=== PATIENT | male | born 1955 | race Caucasian/White ===

== ENCOUNTER 2017-12-13 06:38 | Outpatient (CLI) | payer BC ==
[~2017-12-13] VITALS: Ht 175.3 cm; Wt 122.7 kg
--- NOTE | ~2017-12-13 | HEMODYNAMI ---
PATIENT:CARLEY MARTINEZ MEDICAL RECORD: [id number] : 53 LOCATION:[facility] ADMISSION DATE: 12/13/17 Generatedon:12/13/201710:51 Patient name: CARLEY MARTINEZ Patient #: [id number] SSN: DO B: 1955 Date of study: 12/13/2017 Page: Of Hemodynamic Procedure Report Patient Data Patient Demographics Procedure consent was obtained First Name: CARLEY Gender: Male Last Name: JUAN : 1955 Patient #: [id number] Age: 62 year(s) Race: Unknown Additional ID: [id number] Contact details [address]: [address] [place] [address] State: [place] City: [place] Zip code: [address] Past Medical History Allergies: No known allergies Admission Admission Data Admission Date: 12/13/2017 Admission Time: 6:38 Admit Source: Other Lab Results Lab Result Date: 12/13/2017 Lab Result Time: 7:25 Biochemistry Name Units Result Min Max BUN mg/dl 16 --(---*)-- 7 18 Creatinine mg/dl 1.1 --(--*-)-- 0.6 1.3 CBC Name Units Result Min Max Hematocrit % 44.9 --(*---)-- 42 54 Hemoglobin g/dl 14.8 --(-*--)-- 13.5 17.5 Procedure Procedure Types Cath Procedure Diagnostic Procedure [facility] w/Coronaries Sedation Charges Moderate Sedation up to 15 minutes Procedure Description Procedure Date Procedure Date: 12/13/2017 Procedure Start Time: 10:30 Procedure End Time: 10:50 Procedure Staff Name Function Garcia Farah MD Performing Physician Giovanny Bhagat RT Monitor Afshin Watson RN Nurse Leatha Pitts RT Scrub Procedure Data Cath Procedure Fluoroscopy Diagnostic fluoroscopy Total fluoroscopy Time: 4.1 time: 4.1 min min Diagnostic fluoroscopy Total fluoroscopy dose: 984 dose: 984 mGy mGy Contrast Material Contrast Material Type Amount (ml) Isovue 300 75 Entry Location Entry Primary Successful Side Size Upsize Upsize Entry Closure Richard ccessful Closure Location (Fr) 1 (Fr) 2 (Fr) Remarks Device Remarks Radial Right 6 Fr Mechanical artery Short Compression Estimated blood loss: 5 ml Diagnostic catheters Device Type Used For End Catheter Placement DIAGNOSTIC Brandan 110cm Procedure 5Fr catheter ([id number]) DIAGNOSTIC Edna 110cm 5 Procedure Fr catheter ([id number]) Procedure Complications No complications Procedure Medications Medication Administration Route Dosage 0.9% NaCl I.V. 100 ml/hr Oxygen etCO2 Nasal cannula 2 l/min Heparin Flush Bag added to field 2 bags (1000units/500ml NS) Lidocaine 2% added to field 20 Radial Cocktail added to field 1 syringe (Verapomil 2mg/Nitro 400mcg/Heparin 1500units) Versed I.V. 2 mg Fentanyl I.V. 100 mcg Radial Cocktail I.A. 1 syringe (Verapomil 2mg/Nitro 400mcg/Heparin 1500units) Versed I.V. 1 mg Hemodynamics Rest HGB: 14.8 (g/dl) Heart Rate: 52 (bpm) Pressure Samples Time Site Value (mmHg) Purpose Heart Use Rate(bpm) 10:34 LV 148/5,24 Snapshot 58 10:34 AO 95/58(74) Pullback 56 10:34 LV 139/3,19 Pullback 56 Gradients Valve Time Site 1 Site 2 Mean SEP/DFP Peak To Heart Use (mmHg) (sec/min) Peak Rate (mmHg) (bpm) Aortic 10:34 LV AO 25 12 44 56 139/3,19 95/58(74) Calculations Valve P-P Mean Valve Index Valve Source Name Gradient Area Flow (cm2) Aortic 44 25 44 25 Snapshots Pre Cath Intra NCS Post Cath Vital Signs Time Heart Resp SPO2 etCO2 NIBP Rhythm Pain Sedation Rate (ipm) (%) (mmHg) (mmHg) Status Level (bpm) 10:24:24 51 19 95 27 106/69(98) NSR 0 (11) 10(A) , No pain 10:29:05 51 14 95 39.8 113/68(96) NSR 0 (11) 10(A) , No pain 10:33:41 61 9 92 15.7 99/62(80) NSR 0 (11) 10(A) , No pain 10:38:20 55 9 92 38.3 110/58(76) NSR 0 (11) 10(A) , No pain 10:43:03 54 10 96 36.8 108/57(74) NSR 0 (11) 10(A) , No pain 10:47:43 49 15 98 37.6 118/65(96) NSR 0 (11) 10(A) , No pain Medications Time Medication Route Dose Verified Delivered Reason Notes Effectiveness by by 10:18:12 0.9% NaCl I.V. 100 Afshin Afshin Per ml/hr Walter Watson physician RN RN 10:18:22 Oxygen etCO2 2 l/min Afshin Afshin Per Nasal Walter Watson physician cannula RN RN 10:18:59 Heparin Flush added 2 bags Afshin Afshin used for Bag to Walter Watson procedure (1000units/500ml field AKANKSHA RN NS) 10:19:11 Lidocaine 2% added 20ml Afshin Afshin for local to vial Walter Watson anesthetic field AKANKSHA VALE 10:19:23 Radial Cocktail added 1 Afshin Afshin used for (Verapomil to syringe Walter Watson procedure 2mg/Nitro field VALE RN 400mcg/Heparin 1500units) 10:25:25 Versed I.V. 2 mg Afshin Afshin for sedation Walter Watson RN, RN 10:25:34 Fentanyl I.V. 100 mcg Afshin Afshin for sedation Walter Watson RN, RN 10:31:15 Radial Cocktail I.A. 1 Afshin Garcia for (Verapomil syringe Walter Farah MD vasodilation 2mg/Nitro RN 400mcg/Heparin 1500units) 10:32:47 Versed I.V. 1 mg Afshin Afshin for sedation Walter Watson RN, RN Procedure Log Time Note 10:06:02 Informed consent obtained and on chart 10:06:06 Admit Source: Other 10:06:29 Diagnostic Cath status Elective 10:06:31 Afshin Watson RN sent for patient. Start room use. ::31 Time tracking: Regular hours (M-F 7:00 - 5:00) 10:06:35 Plan of Care:Hemodynamics will remain stable., Cardiac rhythm will remain stable., Comfort level will be maintained., Respiratory function will remain adequate., Patient/ family verbilizes understanding of procedure., Procedure tolerated without complication., Recovers from procedure without complications.. 10:06:57 H&P Date Dictated: 12/04/2017 Within 30 days and on chart., H&P Addendum completed by physician on day of procedure. (MUST COMPLETE FOR ALL OUTPATIENTS). 10:09:04 Lab Result : Hemoglobin 14.8 g/dl 10:09:04 Lab Result : Hematocrit 44.9 % 10:09:04 Lab Result : BUN 16 mg/dl 10:: Lab Result : Creatinine 1.1 mg/dl 10:09:09 Patient received from Pre/Post Procedure Room to CCL 1 Alert and oriented. Tansferred to table in Supine position. 10:09:10 Warm blankets applied, and dangelo hugger turned on for patient comfort. 10:09:11 Correct patient and procedure confirmed by team. 10:09:11 ECG and BP/O2 sat monitors applied to patient. 10::13 Pre-procedure instructions explained to patient. 10::13 Pre-op teaching completed and patient verbalized understanding. 10:09:14 Family in waiting room. 10:09:15 Patient NPO since Midnight. 10:09:20 Patient allergic to No known allergies 10:15:24 Is the patient allergic to Iodine/contrast media? No. 10:15:25 Was the patient premedicated? No 10:15:26 Is patient on blood thinner?No 10:15:28 Patient diabetic? No. 10:15:31 Previous problem with sedation/anesthesia? No ? 10:15:33 Snore? Yes 10:15:34 Sleep apnea? No 10:15:35 Deviated septum? No 10:15:36 Opens mouth fully? Yes 10:15:37 Sticks out tongue? Yes 10:18:12 0.9% NaCl 100 ml/hr I.V. was administered by Afshin Watson RN; Per physician; 10:18:22 Oxygen 2 l/min etCO2 Nasal cannula was administered by Afshin Watson RN; Per physician; 10:18:59 Heparin Flush Bag (1000units/500ml NS) 2 bags added to field was administered by Afshin Watson RN; used for procedure; 10:19:11 Lidocaine 2% 20ml vial added to field was administered by Afshin Watson RN; for local anesthetic; 10:19:23 Radial Cocktail (Verapomil 2mg/Nitro 400mcg/Heparin 1500units) 1 syringe added to field was administered by Afshin Watson RN; used for procedure; 10:23:22 Airway obstruction? No ? 10:23:27 Dentures? Yes in tight 10:23:30 Modified Keaton's test Ulnar < 7 seconds 10:23:30 Vital chart was started 10:23:31 Patient pain scale 0/10 ?. 10:23:35 IV patent on arrival in left forearm with 0.9% NaCl at [facility]. 10:23:37 Lab results completed and on chart. 10:23:40 Right Radial & Right Groin area was prepped with chlora-prep and draped in sterile fashion 10:23:41 Alarms reviewed by R. N. 10:23:41 Sharps counted by scrub and verified by R.N. 10:23:44 Use device set Radial Dx or PCI 10:23:45 ACIST Syringe (40563) opened to sterile field. 10:23:45 Medline Cath Pack ([id number]) opened to sterile field. 10:23:46 Bag Decanter (2002S) opened to sterile field. 10:23:46 ACIST Manifold (93149) opened to sterile field. 10:23:47 ACIST Hand Control (91203) opened to sterile field. 10:23:47 Tegaderm 4 x 4 (1626W) opened to sterile field. 10:23:48 MBrace Wrist Support ([id number]) opened to sterile field. 10:23:50 DIAGNOSTIC WIRE .035 260cm J wire (902023) opened to sterile field. 10:23:51 SHEATH 6Fr Prelude Radial ([id number]) opened to sterile field. 10:23:58 Baseline sample Acquired. 10:24:01 Rhythm: sinus rhythm 10:24:03 Full Disclosure recording started 10:25:02 Physician arrived 10:25:02 --------ALL STOP TIME OUT------ 10:25:02 Final Timeout: patient, procedure, and site verified with staff and physician. All members of the team are in agreement. 10:25:04 Right Radial & Right Groin site verified by team. 10:25:06 Physical assessment completed. ASA score P 2 - A patient with mild systemic disease as per Garcia Farah MD. 10:25:08 Sedation plan: IV Moderate Sedation Medication:Versed, Fentanyl 10:25:25 Versed 2 mg I.V. was administered by Afshin Watson RN; for sedation; 10::34 Fentanyl 100 mcg I.V. was administered by Afshin Watson RN; for sedation; 10:30:18 Procedure started. 10:30:22 Local anesthetic to right radial artery with Lidocaine 2% by Garcia Farah MD.INITIAL ACCESS ONLY 10:30:39 A 6 Fr Short sheath was inserted into the Right Radial artery 10:30:41 Zero performed for pressure channel P1 10:31:15 Radial Cocktail (Verapomil 2mg/Nitro 400mcg/Heparin 1500units) 1 syringe I.A. was administered by Garcia Farah MD; for vasodilation; 10:31:37 A DIAGNOSTIC Brandan 110cm 5Fr catheter ([id number]) was advanced over the wire and used for Procedure. 10:32:47 Versed 1 mg I.V. was administered by Afshin Watson RN; for sedation; 10:34:26 LV gram done using LONG 10:34:28 Injector settings: Ml/sec: 5, Volume: 15, 10:34:33 EF : 60 % 10:34:44 LV hemodynamics recorded. 10:35:08 RCA angiography performed. 10:36:42 Catheter exchanged over wire. 10:37:37 A DIAGNOSTIC Edna 110cm 5 Fr catheter ([id number]) was advanced over the wire and used for Procedure. 10:38:16 LCA angiography performed. 10:45:42 TR BAND Large ([id number]) opened to sterile field. 10:46:55 Catheter removed. 10:47:01 Sheath removed intact; hemostasis achieved with Mechanical Compression to the Right Radial artery. 10:47:04 Procedure ended.(Physican Out) 10:47:10 Fluoroscopy time 04.10 minutes. 10:47:14 Fluoroscopy dose: 984 mGy 10:47:14 Flurop Dose total: 984 10:47:16 Contrast amount:Isovue 300 75ml. 10:47:18 Sharps counted by scrub and verified by R.N. 10:47:19 TR band inflated with 12cc of air. 10:47:50 Insertion/operative site no bleeding no hematoma. 10:47:56 Post right radial artery:stable, soft, clean and dry 10:47:58 Post Procedure Pulses reassessed and unchanged 10:48:00 Post-procedure physical assessment completed. ASA score P 2 - A patient with mild systemic disease as per Garcia Farah MD. 10:48:02 Post procedure rhythm: unchanged. 10:48:07 Estimated blood loss: 5 ml 10:48:08 Post procedure instruction explained to patient.Patient verbalizes understanding. 10:48:09 Patient needs reinforcement of post procedure teaching. 10:50:02 Procedure type changed to Cath procedure, Diagnostic procedure, LHC, LHC w/Coronaries, Sedation Charges, Moderate Sedation up to 15 minutes 10:50:24 Procedure and supply charges have been captured, reviewed, submitted and are correct. 10:50:26 Procedure Complication : No complications 10:50:28 Vital chart was stopped 10:50:28 See physician's report for complete and final results. 10:50:30 Report given to Pre/Post Procedure Room. 10:50:32 Patient transfered to Pre/Post Procedure Room with Stretcher. 10:50:34 Procedure ended. 10:50:34 Full Disclosure recording stopped 10:50:37 End room use (Document Last) Device Usage Item Name Manufacture Quantity Catalog Number Hospital Part Current M inimal Lot# / Charge Number Stock Stock Serial# Code ACIST Syringe Acist 1 82551 [id number] 466591 [id number] 2 0 (33118) [employer] Medline Cath Cardinal 1 [id number] 473008 04958 320220 5 [facility] ([id number]) Bag Decanter Microtek 1 2001S 746760 03612 741424 5 (2001S) Medical Inc. ACIST Manifold Acist 1 81440 690251 180690 678235 5 (13196) [employer] Inc ACIST Hand Acist 1 51492 513203 002662 372286 5 Control (76580) [employer] Inc Tegaderm 4 x 4 3M 1 1626W 930625 615939 797662 5 (1626W) MBrace Wrist Advanced 1 140-0250-00 633531 62424 085109 5 Support Vascular ([id number]) Dynamics DIAGNOSTIC WIRE St Robert 1 544157 555383 646910 759341 3 0 .035 260cm J wire (003134) SHEATH 6Fr Merit 1 [id number] 370954 048729 606255 5 Prelude Radial Medical ([id number]) DIAGNOSTIC Terumo 1 40-6563 679216 465724 452944 5 Brandan 110cm 5Fr catheter (698652) DIAGNOSTIC Terumo 1 40-5323 089968 802521 258580 5 Edna 110cm 5 Fr catheter (144433) TR BAND Large Terumo 1 [id number] 277998 095599 965272 4 0 ([id number]) Signature Audit [place] Stage Time Signature Unsigned Intra-Procedure 12/13/2017 Giovanny Bhagat 10:51:22 AM RT(R) Signatures Monitor : Giovanny Bhagat RT Signature : Date : Time : [address] [address]
[2017-12-13 07:28] VITALS: BP 131/77; Ht 175.3 cm; Wt 122.7 kg
[2017-12-13 07:30] LABS: BASOPHILS 0.4 % (0-2); EOSINOPHILS 2.6 % (0-7); HEMATOCRIT 44.9 % (42.0-54.0); HEMOGLOBIN 14.8 g/dL (13.5-17.5); LYMPHOCYTES 25.2 % (15-50); MCH 29.4 pg (26.0-34.0); MCV 89.1 fL (80.0-100.0); MEAN PLATELET VOLUME 9.8 fL (7.4-10.4); MONOCYTES 8.7 % (2-11); NEUTROPHILS 63.1 % (40-80); PLATELET COUNT 150 10x3/uL (130-400); RBC 5.04 10x6/uL (4.20-6.10); RDW 13.4 % (11.5-14.5); WBC 5.3 10x3/uL (4.8-10.8)
[2017-12-13] MEDS ORDERED: CRESTOR40 MG PO (07:31)
[2017-12-13] MEDS ORDERED: TRIBENZOR 20-51 EACH PO (07:31)
[2017-12-13] MEDS ORDERED: BAYER CHEWABLE81 MG PO (07:31)
[2017-12-13] MEDS ORDERED: VITAMIN D250000 UNIT PO (07:32)
[2017-12-13 07:56] LABS: CALCIUM 9.3 mg/dL (8.5-10.1); CARBON DIOXIDE 29.4 mmol/L (21.0-32.0); CREATININE - SERUM 1.1 mg/dL (0.6-1.3); POTASSIUM - SERUM 4.4 mmol/L (3.5-5.1)
== END 2017-12-13 13:15 | disposition home or self-care (01) ==
LOC: D.CATH 06:38
PROVIDERS: Internal Medicine Cardiovascular Disease
DX: R94.39 Abnormal result of other cardiovascular function study (principal); I10 Essential (primary) hypertension; R06.09 Other forms of dyspnea; Z01.812 Encounter for preprocedural laboratory examination

== ENCOUNTER 2017-12-28 07:30 | Inpatient (IN) | payer BC ==
[~2017-12-28] VITALS: Ht 175.3 cm; Wt 108.1 kg
--- NOTE | ~2017-12-28 | OP ---
PATIENT NAME: CARLEY MARTINEZ MEDICAL RECORD: [id number] :53 LOCATION:[facility] ADMISSION DATE:01/03/18 SURGEON: ISSAC DIXON MD DATE OF OPERATION: 01/03/2018 SURGEON: Issac Dixon MD MALTER OPERATOR: Levy Best MD and BASSAM Gutiérrez OPERATION PERFORMED: 1. Coronary artery bypass graft times 4 (left internal mammary to LAD, reverse saphenous vein graft from aorta to ramus intermedius, aorta to obtuse marginal, aorta to right coronary artery). 2. Endoscopic saphenous vein harvest. PREOPERATIVE DIAGNOSES: Coronary artery disease with unstable angina including new onset crescendo angina. POSTOPERATIVE DIAGNOSES: Coronary artery disease with unstable angina including new onset crescendo angina. ANESTHESIA: General endotracheal anesthesia. ESTIMATED BLOOD LOSS: Total cardiopulmonary bypass with Cell Saver retransfusion. COMPLICATIONS: None. SPECIMENS: None. CONDITION: Stable. DISPOSITION: CV ICU. OPERATIVE FINDINGS: 1. Smallish greater saphenous vein at the knee and good quality partially dual system in the thigh required open harvest due to a large posterior branch after aborting the endoscopic vein harvest of the right thigh. The smaller segment was a good match for the obtuse marginal graft and the other vein segments were good matches for the obtuse marginal and right coronary artery grafts. 2. Good quality internal mammary artery. 3. Normal appearing heart with good contractility and normal APOLLO. 4. LAD was a 2.0-mm vessel that was mostly intraepicardial by about 2 mm, as suspected from the preoperative angiogram reviewed by Dr. Best. 5. The ramus intermedius was a smallish 1.5 mm vessel just behind a large segment of epicardial fat and anastomosed low near the left atrial appendage. 6. The large obtuse marginal was a 2.5 mm vessel. 7. Right coronary artery, 2.5 mm vessel. 8. Mild bradycardia requiring atrial pacing after separation from cardiopulmonary bypass. OPERATIVE INDICATION: Crescendo angina, multivessel coronary artery disease including left main coronary stenosis. OPERATIVE SUMMARY IN DETAIL: The patient was brought to the operative suite. OPERATIVE REPORT [id number] CARLEY MARTINEZ General anesthesia was obtained. The patient was prepped and draped. Greater saphenous vein harvested from the right leg, first with endoscopic technique, but then with open technique. Side branches clipped, vessel removed, side branches tied, leg later closed in 2 layers and an elastic wrap applied. Mediastinum incision was made. Subcutaneous tissue divided with electrocautery. Sternum was divided with a saw. The left hemisternum was elevated. The left pleural cavity was entered. Left internal mammary was taken down as a pedicle graft. Sternal retractor was placed. Pericardium was opened. Heparin was given. The aorta and right atrium were cannulated. Internal mammary was clipped distally and made ready for anastomosis. The patient was placed on cardiopulmonary bypass after activated clotting time was appropriately elevated. Sites for distal anastomoses were selected. The patient's temperature was allowed to drift downward. Crossclamp was placed. Antegrade cardioplegia needle was inserted. The patient was given antegrade cardioplegic and this repeated at 15 minute intervals including down the completed vein graft. Distal anastomoses were performed in standard technique, proximal anastomosis in single cross-clamp technique. Aortic root de-aired. Proximal anastomosis tied down. Flow restored in the vein grafts. Proximal and distal anastomotic sites inspected for bleeding with single proximal suture and single distal suture in the right. The patient was in spontaneous rhythm. Left chest was evacuated. The internal mammary was placed behind the epicardial fat. Atrial pacing wires were placed. The patient was atrially paced and weaned from cardiopulmonary bypass and was stable. The patient was decannulated. Protamine was given. Pledgeted suture was placed in the aortic cannulation site. Hemostasis was ensured. Drains were placed in the mediastinal and left pleural cavity. Pericardial fat was approximated over the aorta. Internal mammary harvest site was inspected and it was free of bleeding. Sternum was closed with wires. Fascia was closed, subcutaneous tissue closed, and skin was closed. Dermabond was placed. The needle and sponge counts reported correct and the patient was taken to ICU in stable condition. TRANSINT:[id number] Voice Confirmation ID: [id number] DOCUMENT ID: [id number] ISSAC DIXON MD at 0720 CC: [id number] DICTATION DATE: 01/03/18 1551 CONSUMER INSIGHT ANALYST: 01/03/18 1641 ADM IN [facility] [address] [place] [address]
--- NOTE | ~2017-12-28 | HP ---
PATIENT: CARLEY MARTINEZ MEDICAL RECORD: [id number] ACCOUNT: [id number] LOCATION:[facility]- : 53 ADMISSION DATE: 01/03/18 HISTORY AND PHYSICAL EXAMINATION CARLEY Drew (62yo, M) ID# [id number]. Date/Time12/21/2017 11:55AHIHB38 1955Service Dept.NP_[place] [facility] ClinicProviderJONG DIXON MDInsuranceMed Primary: [place] Insurance # : [id number] Policy/Group # : [id number] Referring Provider Name : LAURE COBB Employer Name : UNKNOWN Prescription: CMX - Member is eligible. Prescription: [facility] MEDICAID ADMINISTRATION - Member is eligible. Chief Complaint Coronary artery disease referral from mandi Farah for CABG Patient's Care Team Referring Provider (): LAURE COBB: [address] [address], , Fax [phone] Roller Helper: FILIPE FARAH MD: [address] [place] [phone], , Patient's Pharmacies [facility] ([facility]): [address] [place] [address], , Vitals BP:156/90 sitting L arm 12/21/2017 11:34 am 140/84 sitting R arm 12/21/2017 11:36 amBP Cuff Size:adult 12/21/2017 11:34 am adult 12/21/2017 11:36 amHR:60,reg 12/21/2017 11:36 amHt:5 ft 9 in 12/21/2017 11:36 amWt:274 lbs 12/21/2017 11:36 amNotes:with exertion is having dyspnea and chest pain, passes with sitting and resting. At rest has had some discomfort he attributes to indigestion, which occurs daily. Some days are worse than others wrt the pain/dyspnea on exertion, but all exertion will lead to pain and dyspnea. 12/21/2017 11:39 amBMI:40.5 12/21/2017 11:36 amAllergies Reviewed Allergies NKDAMedications Reviewed Medications aspirin enteredErika WatkinshydroCHLOROthiazide 12.5 mg capsule TAKE 1 CAPSULE EVERY DAY FOR WATER RETENTION. / FOR BLOOD PRESSURE THANK YOU06/04/17 filledsurescriptsolmesartan 20 mg-hydrochlorothiazide 12.5 mg tablet TAKE ONE AND ONE-HALF TABLETS BY MOUTH EVERY DAY THANK YOU12/04/17 filledCaremarkrosuvastatin 40 mg tablet TAKE 1 TABLET BY MOUTH EVERY DAY THANK 10/15/17 filledCaremarkVitamin D2 50,000 unit capsule TAKE 1 CAPSULE BY MOUTH EACH WEEK THANK YOU11/21/17 filledCaremarkProblems Reviewed Problems Chest pain - Onset: 12/21/2017 Dyspnea - Onset: 12/21/2017 Transient cerebral ischemia Hypertensive disorder Coronary arteriosclerosis Hyperlipidemia Dyspnea on exertion HISTORY AND PHYSICAL [id number] CARLEY MARTINEZ Family History Reviewed Family History Brother- Family history of coronary arteriosclerosisMother- Family history of coronary arteriosclerosismother and brother had bypass surgery, uncles on paternal side with heart diseaseSocial History Reviewed Social History Cardiology and General Family history of heart disease?: Y Smoking Status: Never smoker High Cholesterol: Y High blood pressure: Y Exercise level: Occasional Overweight: Y Obese: Y Diabetes: N Alcohol intake: Occasional 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 Marital status: Surgical History Reviewed Surgical History L knee arthroscopy 12 years ago Past Medical History Reviewed Past Medical History Chest Pain: Y Coronary Artery Disease: Y Heart Disease: Y High Blood Pressure: Y Hyperlipidemia: Y Hypertension: Y Joint Pain or Swelling: Y Shortness of Breath: Y Documents for Discussion N/A Screening None recorded. HPI Coronary Artery Disease F/U Reported by patient. Severity: symptoms are worsening Context: non-smoker Associated Symptoms: chest pain with exertion; dyspnea with exertion Dyspnea Reported by patient. Quality: dyspnea; can't catch breath Severity: limits activity Duration: can take just a few up to 20 minutes to recover Onset/Timing: daily Context: with activity; walking up inclines; occurs first then chest pain follows Alleviating Factors: rest Aggravating Factors: activity Associated Symptoms: chest pain/discomfort; palpitations; fatigue; dyspepsia; lightheadedness HISTORY AND PHYSICAL [id number] CARLEY MARTINEZ exertional chest pain, resolves with rest after less than 1 minute, no syncope, minimal dyspnea, denies palpitations. Significant risk factors ROS Additionally reports: as reviewed in the chart with the patient ROS as noted in the HPI Physical Exam Patient is a 62-year-old male. Constitutional: General Appearance well nourished and developed and healthy-appearing. Level of Distress NAD. Ambulation ambulating normally. Cardiovascular: Apical Impulse not displaced or no thrill. Heart Auscultation normal s1 a nd s2; no murmurs, rubs, or gallops; and RRR. Arterial Pulses no abdominal aorta bruits, femoral bruits, or popliteal bruits and 2+ bilateral, carotid 2+ bilateral, femoral 2+ bilateral, popliteal 2+ bilateral, and dorsalis pedis 2+ bilateral. Edema no ed natacha or varicosities. Lungs: Repiratory Effort no dyspnea. Percussion no hyperresonance or dullness or flatness. Auscultation no wheezing, rhonchi, or rales / crackles and breathing sounds normal, good air movement, and CTA except as noted. Abdomen: Bowl S ounds normal. Inspection and Palpation no tenderness, guarding, masses, or rebound tenderness and soft and non-distended. Liver non-tender and no hepatomegaly. Spleen non-tender and no splenomegaly. Hernia none palpable. Musculoskeletal System: Gait And Stance normal gait and stance. Digits and Nails normal nails and no cyanosis. Neurologic: Cranial Nerves grossly intact. Reflexes DTRs 2+ bilaterally throughout. Sensation grossly intact. Lymph Nodes: Lymph Nodes no cervical LAD, supraclavicular LAD, axillary LAD, or inguinal LAD. Eyes: Lids and Conjunctivae no discharge or pallor and non-injected. Pupils PERRLA. Cornea grossly intact. EOM EOMI. Lens clear. Sclerae non-icteric. Neck: Neck no masses, enlarged lymph nodes, or carotid bruits and supple and trachea midline. Thyroid no enlargement or nodules and non-tender. Skin: Inspection and Palpation no rash, lesions, ulcers, jaundice, or abnormal nevi. Assessment / Plan 1. Coronary arteriosclerosis I25.10: Atherosclerotic heart disease of [place] coronary artery without angina pectoris 2. Chest pain R07.9: Chest pain, unspecified CHEST PAIN: CARE INSTRUCTIONS 3. Dyspnea R06.02: Shortness of breath SHORTNESS OF BREATH: CARE INSTRUCTIONS Discussion Notes HISTORY AND PHYSICAL [id number] CARLEY MARTINEZ we discussed the ra tionale for coronary artery bypass graft, the alternatives, and risks. He states understanding and agrees to proceed JONG DIXON MD at 0728 CC: [id number] DICTATION DATE: 12/21/17 1130 MEDICAL GENETICS DIRECTOR: COLTEN 01/02/18 0847 ADM IN [facility] [address] [place] [address]
--- NOTE | ~2017-12-28 | TEE ---
PATIENT:CARLEY MARTINEZ MEDICAL RECORD: [id number] LOCATION:[place] [address] AGE OF PATIENT: 62 ADMISSION DATE: 01/03/18 SEX: M REFERRING PHYSICIAN: INTERPRETING PHYSICIAN: MARK OCONNELL MD TRANSESOPHAGEAL ECHOCARDIOGRAM Date: 01/03/18 APOLLO CHARGE Y INDICATIONS: CABG PREMEDICATIONS: PATIENT'S RESPONSE PROCEDURE DOPPLER MEASUREMENTS: LVIT LA PA RA LVOT RVOT Asc. Ao AV Gradient Peak AV Mean AV Area MV Gradient Peak MV Mean MV Area INTERPRETATION: Doppler: 2-D: EF 60+ COLOR FLOW DOPPLER TRACE MR NORMAL SALINE STUDY: MISCELLANOUS: DIAGNOSIS: PLAN: Crime Scene Investigator:2 Dr. Farah Data Deliverables Manager: Felipe GODWIN COMMENTS: DESTINY PATIENT DATE OF SERVICE: PROCEDURE: Transesophageal echo evaluation of valvular structures during bypass surgery. FINDINGS: 1. Left ventricular chamber size is within normal limits. Left ventricular systolic function is normal. Overall ejection fraction estimated 60%. 2. Left atrium, right atrium, and right ventricle chamber sizes are within TRANSESOPHAGEAL ECHOCARDIOGRAM REPORT [id number] CARLEY MARTINEZ normal limits. 3. Valvular structures have normal structure and motion. 4. Doppler interrogation only reveals trace to mild mitral regurgitation, no other valvular insufficiency or stenosis. 5. No evidence of pericardial effusion or left ventricular thrombus. TRANSINT:[id number] Voice Confirmation ID: [id number] DOCUMENT ID: [id number] at [id number] CC: [id number] DICTATION DATE: 01/03/18 1229 INCLUSION SPECIAL EDUCATOR: 01/03/18 1458 ADM IN [place] [id number] [place] [address]
[~2017-12-28 07:30] MED LIST: BAYER CHEWABLE81 MG PO; CRESTOR40 MG PO; TRIBENZOR 20-51 EACH PO; VITAMIN D250000 UNIT PO
[2017-12-31] MEDS ORDERED: METAMUCIL1042 GM PO (10:28)
[2017-12-31 12:48] LABS: BASOPHILS 0.3 % (0-2); EOSINOPHILS 2.6 % (0-7); HEMATOCRIT 44.2 % (42.0-54.0); HEMOGLOBIN 14.8 g/dL (13.5-17.5); IMMATURE GRANULOCYTES 0.2 % (0-5); MCH 29.4 pg (26.0-34.0); MCHC 33.5 g/dL (31.0-37.0); MCV 87.7 fL (80.0-100.0); MONOCYTES 10.3 % (2-11); NEUTROPHILS 60.6 % (40-80); PLATELET COUNT 159 10x3/uL (130-400); RBC 5.04 10x6/uL (4.20-6.10); RDW 13.3 % (11.5-14.5); WBC 5.8 10x3/uL (4.8-10.8)
[2017-12-31 13:04] LABS: APPEARANCE CLEAR (CLEAR); COLOR YELLOW (YELLOW)
[2017-12-31 13:05] LABS: BILIRUBIN NEGATIVE (NEGATIVE); GLUCOSE NEGATIVE (NEGATIVE); KETONE NEGATIVE (NEGATIVE); NITRITE NEGATIVE (NEGATIVE); PROTEIN NEGATIVE (NEGATIVE); UROBILINOGEN NORMAL (NORMAL)
[2017-12-31 13:14] LABS: ALBUMIN 4.1 g/dL (3.4-5.0); ALKALINE PHOSPHATASE 51 U/L (46-116); ALT (SGPT) 34 U/L (10-68); CALC OSMOLALITY 280 mosm/kg (275-300); CALCIUM 9.4 mg/dL (8.5-10.1); CHLORIDE - SERUM 104 mmol/L (98-107); CHOLESTEROL, TOTAL 211 mg/dL (0-200); GLUCOSE 93 mg/dL (74-106); PHOSPHOROUS 3.2 mg/dL (2.5-4.9); POTASSIUM - SERUM 4.3 mmol/L (3.5-5.1); PROTEIN - SERUM 7.7 g/dL (6.4-8.2); SODIUM 141 mmol/L (136-145); T4 THYROXIN - FREE 0.93 ng/dL (0.76-1.46); UREA NITROGEN 13 mg/dL (7-18); URIC ACID 6.4 mg/dL (2.6-7.2); eGFR NON AFRICAN AMERICAN 80 mL/min (90-120)
[2017-12-31 13:24] LABS: APTT 28.2 SECONDS (22.8-39.4); INR 1.02 (0.85-1.17)
[2018-01-03] VITALS (38 sets, daily range): BP systolic 92–154; BP diastolic 53–77; BMI 40.5; BMI 41.3
[2018-01-04] VITALS (44 sets, daily range): BP systolic 104–135; BP diastolic 50–72; Ht 175.3 cm; Wt 108.1 kg
[2018-01-04 06:23] LABS: HEMATOCRIT 37.1 % (42.0-54.0); HEMOGLOBIN 12.3 g/dL (13.5-17.5); MCH 28.9 pg (26.0-34.0); MCHC 33.2 g/dL (31.0-37.0); MCV 87.3 fL (80.0-100.0); MEAN PLATELET VOLUME 11.7 fL (7.4-10.4); RBC 4.25 10x6/uL (4.20-6.10); RDW 13.5 % (11.5-14.5); WBC 15.7 10x3/uL (4.8-10.8)
[2018-01-04 06:47] LABS: ALBUMIN 3.1 g/dL (3.4-5.0); ALKALINE PHOSPHATASE 29 U/L (46-116); ALT (SGPT) 28 U/L (10-68); BILIRUBIN - TOTAL 0.64 mg/dL (0.2-1.3); CALC OSMOLALITY 281 mosm/kg (275-300); CALCIUM 7.9 mg/dL (8.5-10.1); CARBON DIOXIDE 25.9 mmol/L (21.0-32.0); CHLORIDE - SERUM 105 mmol/L (98-107); POTASSIUM - SERUM 5.6 mmol/L (3.5-5.1); PROTEIN - SERUM 6.1 g/dL (6.4-8.2); SODIUM 139 mmol/L (136-145); UREA NITROGEN 13 mg/dL (7-18); eGFR NON AFRICAN AMERICAN 80 mL/min (90-120)
[2018-01-04 06:48] LABS: GLUCOSE 171 mg/dL (74-106)
[2018-01-05] VITALS (24 sets, daily range): BP systolic 95–145; BP diastolic 50–73
[2018-01-05 06:03] LABS: HEMATOCRIT 34.2 % (42.0-54.0); HEMOGLOBIN 11.2 g/dL (13.5-17.5); MCH 29.2 pg (26.0-34.0); MCHC 32.7 g/dL (31.0-37.0); MCV 89.1 fL (80.0-100.0); MEAN PLATELET VOLUME 10.4 fL (7.4-10.4); RBC 3.84 10x6/uL (4.20-6.10); RDW 13.4 % (11.5-14.5); WBC 17.3 10x3/uL (4.8-10.8)
[2018-01-05 06:36] LABS: ALBUMIN 2.9 g/dL (3.4-5.0); ALKALINE PHOSPHATASE 41 U/L (46-116); ALT (SGPT) 24 U/L (10-68); BILIRUBIN - TOTAL 0.68 mg/dL (0.2-1.3); CALC OSMOLALITY 277 mosm/kg (275-300); CALCIUM 8.3 mg/dL (8.5-10.1); CARBON DIOXIDE 28.6 mmol/L (21.0-32.0); CHLORIDE - SERUM 102 mmol/L (98-107); GLUCOSE 135 mg/dL (74-106); PROTEIN - SERUM 6.3 g/dL (6.4-8.2); SODIUM 138 mmol/L (136-145); UREA NITROGEN 12 mg/dL (7-18); eGFR NON AFRICAN AMERICAN 80 mL/min (90-120)
[2018-01-05 06:37] LABS: POTASSIUM - SERUM 4.4 mmol/L (3.5-5.1)
[2018-01-06] VITALS (23 sets, daily range): BP systolic 99–188; BP diastolic 35–70
[2018-01-06 05:29] LABS: HEMATOCRIT 29.8 % (42.0-54.0); HEMOGLOBIN 9.7 g/dL (13.5-17.5); MCHC 32.6 g/dL (31.0-37.0); MEAN PLATELET VOLUME 10.5 fL (7.4-10.4); RBC 3.35 10x6/uL (4.20-6.10); RDW 13.2 % (11.5-14.5)
[2018-01-06 06:03] LABS: ALBUMIN 2.5 g/dL (3.4-5.0); ALKALINE PHOSPHATASE 116 U/L (46-116); BILIRUBIN - TOTAL 0.59 mg/dL (0.2-1.3); CALC OSMOLALITY 271 mosm/kg (275-300); CALCIUM 8.2 mg/dL (8.5-10.1); CHLORIDE - SERUM 99 mmol/L (98-107); CREATININE - SERUM 0.8 mg/dL (0.6-1.3); GLUCOSE 110 mg/dL (74-106); POTASSIUM - SERUM 4.3 mmol/L (3.5-5.1); SODIUM 135 mmol/L (136-145); UREA NITROGEN 15 mg/dL (7-18); eGFR NON AFRICAN AMERICAN > 90 mL/min (90-120)
[2018-01-06 06:06] LABS: ALT (SGPT) 39 U/L (10-68)
[2018-01-07] VITALS (24 sets, daily range): BP systolic 90–150; BP diastolic 40–67
[2018-01-07 05:46] LABS: HEMATOCRIT 28.6 % (42.0-54.0); HEMOGLOBIN 9.3 g/dL (13.5-17.5); MCH 28.9 pg (26.0-34.0); MCHC 32.5 g/dL (31.0-37.0); MCV 88.8 fL (80.0-100.0); MEAN PLATELET VOLUME 10.2 fL (7.4-10.4); RBC 3.22 10x6/uL (4.20-6.10); RDW 13.5 % (11.5-14.5); WBC 8.8 10x3/uL (4.8-10.8)
[2018-01-07 06:03] LABS: ALBUMIN 2.5 g/dL (3.4-5.0); ALKALINE PHOSPHATASE 234 U/L (46-116); BILIRUBIN - TOTAL 0.49 mg/dL (0.2-1.3); CALC OSMOLALITY 274 mosm/kg (275-300); CALCIUM 8.4 mg/dL (8.5-10.1); CARBON DIOXIDE 31.1 mmol/L (21.0-32.0); CHLORIDE - SERUM 100 mmol/L (98-107); CREATININE - SERUM 0.7 mg/dL (0.6-1.3); GLUCOSE 106 mg/dL (74-106); PROTEIN - SERUM 6.1 g/dL (6.4-8.2); SODIUM 137 mmol/L (136-145); UREA NITROGEN 16 mg/dL (7-18); eGFR NON AFRICAN AMERICAN > 90 mL/min (90-120)
[2018-01-07 06:18] LABS: ALT (SGPT) 102 U/L (10-68)
[2018-01-08] VITALS (10 sets, daily range): BP systolic 90–131; BP diastolic 47–67
[2018-01-08 06:34] LABS: HEMOGLOBIN 9.7 g/dL (13.5-17.5); MCH 28.8 pg (26.0-34.0); MCHC 32.3 g/dL (31.0-37.0); MEAN PLATELET VOLUME 9.2 fL (7.4-10.4); RBC 3.37 10x6/uL (4.20-6.10); RDW 13.6 % (11.5-14.5)
[2018-01-08 07:03] LABS: ALBUMIN 2.6 g/dL (3.4-5.0); ALKALINE PHOSPHATASE 293 U/L (46-116); ALT (SGPT) 194 U/L (10-68); BILIRUBIN - TOTAL 0.54 mg/dL (0.2-1.3); CALC OSMOLALITY 275 mosm/kg (275-300); CALCIUM 8.9 mg/dL (8.5-10.1); CARBON DIOXIDE 33.6 mmol/L (21.0-32.0); CHLORIDE - SERUM 99 mmol/L (98-107); CREATININE - SERUM 0.9 mg/dL (0.6-1.3); GLUCOSE 117 mg/dL (74-106); POTASSIUM - SERUM 3.9 mmol/L (3.5-5.1); PROTEIN - SERUM 6.7 g/dL (6.4-8.2); SODIUM 137 mmol/L (136-145); UREA NITROGEN 14 mg/dL (7-18); eGFR NON AFRICAN AMERICAN > 90 mL/min (90-120)
[2018-01-08] MEDS ORDERED: CORDARONE200 MG PO (08:25)
[2018-01-08] MEDS ORDERED: K-TAB10 MEQ PO (08:27)
[2018-01-08] MEDS ORDERED: METOPROLOL TART50 MG PO (08:28)
[2018-01-08] MEDS ORDERED: PERCOCET 10/3251 TA1 PO (08:29)
[2018-01-08] MEDS ORDERED: TOPROL XL50 MG PO (09:56)
== END 2018-01-08 11:15 | disposition home or self-care (01) | DRG 236 ==
LOC: D.SDCHOLD 07:30 → D.CVICU 01-03 05:00 → D.SDCHOLD 01-03 07:30 → D.CVICU 01-03 11:49
PROVIDERS: Thoracic Surgery (Cardiothoracic Vascular Surgery)
PROC: 021209W Bypass Coronary Artery, Three Arteries from Aorta with Autologous Venous Tissue, Open Approach (ICD-10-PCS; 2018-01-03)
PROC: 06BP0ZZ Excision of Right Saphenous Vein, Open Approach (ICD-10-PCS; 2018-01-03)
PROC: 5A1221Z Performance of Cardiac Output, Continuous (ICD-10-PCS; 2018-01-03)
PROC: B24BZZ4 Ultrasonography of Heart with Aorta, Transesophageal (ICD-10-PCS; 2018-01-03)
PROC: 02100Z9 Bypass Coronary Artery, One Artery from Left Internal Mammary, Open Approach (ICD-10-PCS; principal; 2018-01-03 07:30)
DX: I25.118 Atherosclerotic heart disease of native coronary artery with other forms of angina pectoris (principal); Z68.41 Body mass index [BMI] 40.0-44.9, adult; I10 Essential (primary) hypertension; E78.5 Hyperlipidemia, unspecified; R06.02 Shortness of breath; R07.9 Chest pain, unspecified; E66.9 Obesity, unspecified

== ENCOUNTER → 2018-02-06 12:18 | Outpatient (CLI) | payer MEDICAID ==
[2018-01-04 09:24] VITALS: BMI 41.0
[~2018-02-06 12:18] MED LIST changes: +CORDARONE200 MG PO; +K-TAB10 MEQ PO; +METAMUCIL1042 GM PO; +METOPROLOL TART50 MG PO; +PERCOCET 10/3251 TA1 PO; +TOPROL XL50 MG PO
[2018-02-06 13:08] LABS: HEMATOCRIT 43.1 % (42.0-54.0); HEMOGLOBIN 14.2 g/dL (13.5-17.5); MCH 28.6 pg (26.0-34.0); MCHC 32.9 g/dL (31.0-37.0); MCV 86.7 fL (80.0-100.0); MEAN PLATELET VOLUME 9.6 fL (7.4-10.4); RBC 4.97 10x6/uL (4.20-6.10); RDW 14.2 % (11.5-14.5)
[2018-02-06 13:22] LABS: ALBUMIN 3.8 g/dL (3.4-5.0); ANION GAP 9.3 mmol/L (8-16); BILIRUBIN - TOTAL 0.35 mg/dL (0.2-1.3); CALCIUM 9.1 mg/dL (8.5-10.1); CARBON DIOXIDE 30.2 mmol/L (21.0-32.0); CREATININE - SERUM 1.2 mg/dL (0.6-1.3); POTASSIUM - SERUM 4.5 mmol/L (3.5-5.1); PROTEIN - SERUM 7.7 g/dL (6.4-8.2)
== END | disposition home or self-care (01) ==
LOC: D.LAB 10:45
PROVIDERS: Thoracic Surgery (Cardiothoracic Vascular Surgery)
DX: J91.8 Pleural effusion in other conditions classified elsewhere (principal); D64.9 Anemia, unspecified

== ENCOUNTER → 2019-01-29 08:07 | Outpatient (CLI) | payer MEDICAID ==
[2018-01-04 09:24] VITALS: BMI 41.0
== END | disposition home or self-care (01) ==
LOC: D.HCCARDIO 08:07
PROVIDERS: ATTEND Internal Medicine Cardiovascular Disease
DX: I25.10 Atherosclerotic heart disease of native coronary artery without angina pectoris (principal)

== ENCOUNTER → 2020-02-18 07:47 | Outpatient (CLI) | payer MEDICARE ==
[2018-01-04 09:24] VITALS: BMI 41.0
== END | disposition home or self-care (01) ==
LOC: D.HCCECHO 07:47
PROVIDERS: ATTEND Internal Medicine Cardiovascular Disease
DX: I25.10 Atherosclerotic heart disease of native coronary artery without angina pectoris (principal)